=== PATIENT | female | born 1955 | race Caucasian/White ===

== ENCOUNTER 2023-12-16 07:39 | Outpatient (CLI) | payer MEDICARE ==
[2023-12-16 08:28] LABS: ALV-art Gradient 38.405 mmHg (0-20); Actual Bicarbonate (HCO3a) 24.8 mEq/L (22-28); Analyzer IN Cardio CS ER; Base Excess (BEa) 0.6 mEq/L (-2.0 to +3.0); CO2 Tension 38.5 mmHg (35.0-45.0); Calcium, Ionized (arterial) 1.18 mmol/L (1.12-1.30); Carboxyhemoglobin (COHb) 4.7 gm% (0.0-3.0); Hematocrit-ABG 47 % (36.0-47.0); Hemoglobin (Hb) 16.1 g/dL (12.0-16.0); O2 Tension (PaO2), arterial 63.2 mmHg (> 80.0); Puncture Site RRA; pH, Arterial 7.426 (7.35-7.45)
== END 2023-12-16 07:40 | disposition home or self-care (01) ==
LOC: CSHCP 07:39
PROVIDERS: ATTEND Internal Medicine Critical Care Medicine
DX: J44.9 Chronic obstructive pulmonary disease, unspecified (principal); R09.02 Hypoxemia
CPT/HCPCS: 36600; 82805; 94060; 94618; 94664; 94726; 94729

== ENCOUNTER 2024-04-05 14:37 | Outpatient (CLI) | payer MEDICARE | END 2024-04-05 14:38 | disposition home or self-care (01) | LOC: CSHCT 14:37 | PROVIDERS: ATTEND Internal Medicine Critical Care Medicine | DX: R91.1 Solitary pulmonary nodule (principal) | CPT/HCPCS: 71260; 82565 ==

== ENCOUNTER 2024-10-07 08:13 | Outpatient (CLI) | payer MEDICARE, OTHER ==
[2024-10-07] MEDS ORDERED: Iopamidol 370 76% 100 ML VIAL ONE (13:34)
== END 2024-10-07 08:14 | disposition home or self-care (01) ==
LOC: CSHCT 08:13
PROVIDERS: ATTEND Internal Medicine Critical Care Medicine
DX: R91.1 Solitary pulmonary nodule (principal); R91.8 Other nonspecific abnormal finding of lung field; K86.9 Disease of pancreas, unspecified
CPT/HCPCS: 71260; 82565; Q9967